=== PATIENT | female | born 1995 | race Caucasian/White ===

== ENCOUNTER 2016-09-03 00:34 | Emergency (ER) | payer OTHER ==
[2016-09-03 00:51] VITALS: BP 105/64; PULSE 98; TEMP 97.8; BMI 26.9
[2016-09-03] MEDS ORDERED: diphenhydrAMINE HCL 25 MG CAPSULE (FP) PO ONE ×2 (01:32→01:36)
--- NOTE | 2016-09-03 01:32 | PDOC ---
History of Present Illness - General History Source: Patient <Don Ch - Last Filed: 09/03/16 01:40> - General History Source: Patient Exam Limitations: No Limitations - History of Present Illness Initial Comments: 09/03/16 01:51 The patient is a 21-year-old female, with no significant past medical history, who presents to the emergency department complaining of nasal congestion and fever since yesterday. The patient presents to the ED with her daughter who has similar symptoms since 4 days ago. She reports an associated non-productive cough, but denies chills, headache, and dizziness. She denies chest pain, diaphoresis, palpitations, and shortness of breath. She denies nausea, vomiting , diarrhea, and constipation. The patient denies any recent travel. Allergies: None reported. Past Surgical History: None reported. Social History: Non-smoker. Denies alcohol or drug use. PCP: Dr. Gus Manjarrez <Chelsie Burnette - Last Filed: 09/03/16 01:56> - General Chief Complaint: Cold Symptoms Stated Complaint: COUGH,CONGESTION Time Seen by Provider: 09/03/16 01:32 Past History - Psycho/Social/Smoking Cessation Hx Suicidal Ideation: No Smoking History: Never smoked Have you smoked in the past 12 months: No Information on smoking cessation initiated: No Hx Alcohol Use: No Drug/Substance Use Hx: No <Don Ch - Last Filed: 09/03/16 01:40> <Chelsie Burnette - Last Filed: 09/03/16 01:56> - Past Medical History Allergies/Adverse Reactions: Allergies Allergy/AdvReac Type Severity Reaction Status Date / Time No Known Allergies Allergy Verified 09/03/16 00:49 Home Medications: Ambulatory Orders Diphenhydramine HCl [Benadryl Capsules -] 25 mg PO TID #30 capsule 09/03/16 Review of Systems - Review of Systems Able to Perform ROS?: Yes Comments:: 09/03/16 01:51 CONSTITUTIONAL: Present: +fever Absent: no chills, no fatigue EYES: Absent: visual changes ENT: Present: +nasal congestion Absent: ear pain, no sore throat CARDIOVASCULAR: Absent: chest pain, no palpitations RESPIRATORY: Present: + cough Absent: no SOB GI: Absent: abdominal pain, no nausea, no vomiting, no constipation, no diarrhea GENITOURINARY: Absent: dysuria, no frequency, no hematuria MUSKULOSKELETAL: Absent: back pain, no arthralgia, no myalgia SKIN: Absent: rash NEURO: Absent: headache <BurnetteDeandraaliyajordanchristina - Last Filed: 09/03/16 01:56> *Physical Exam - Vital Signs Last Vital Signs Temp Pulse Resp BP Pulse Ox 97.8 F 98 H 22 105/64 99 09/03/16 00:50 09/03/16 00:50 09/03/16 00:50 09/03/16 00:50 09/03/16 00:50 <Don Ch - Last Filed: 09/03/16 01:40> - Vital Signs Last Vital Signs Temp Pulse Resp BP Pulse Ox 97.8 F 98 H 22 105/64 99 09/03/16 00:50 09/03/16 00:50 09/03/16 00:50 09/03/16 00:50 09/03/16 00:50 - Physical Exam Comments: 09/03/16 01:52 GENERAL: Well-appearing, well-nourished. No apparent distress. HEENT: Normocephalic, atraumatic. PERRL, EOM intact. CARDIOVASCULAR: Normal S1, S2. Regular rate and rhythm. PULMONARY: Clear to auscultation bilaterally. ABDOMEN: Soft, non-distended, non-tender. EXTREMITIES: Normal ROM in all four extremities. No gross deformities. SKIN: Warm, dry. No rash NEUROLOGICAL: No focal neurological deficits. <Chelsie Burnette - Last Filed: 09/03/16 01:56> ED Treatment Course - Medications Given in the ED: ED Medications Discontinued Medications Generic Name Dose Route Start Last Admin Trade Name Freq PRN Reason Stop Dose Admin Diphenhydramine HCl 25 mg 09/03/16 01:32 09/03/16 01:36 Benadryl - PO 09/03/16 01:33 25 mg ONCE ONE Administration <VasileDeandramanuelito - Last Filed: 09/03/16 01:56> Medical Decision Making - Medical Decision Making 09/03/16 01:34 Dr. Ch: The scribe's documentation has been prepared under my direction and personally reviewed by me in its entirery. I confirm that the note above accurately reflects all work, treatment, procedures, and medical decision making performed by me. <Don Ch - Last Filed: 09/03/16 01:40> *DC/Admit/Observation/Transfer - Discharge Dispostion Admit: No <Don Ch - Last Filed: 09/03/16 01:40> - Attestations Scribe Attestion: 09/03/16 01:53 Documentation prepared by Chelsie Burnette, acting as administrative medical director for Don Ch DO. <Chelsie Burnette - Last Filed: 09/03/16 01:56> Diagnosis at time of Disposition: Cough, Viral upper respiratory illness - Discharge Dispostion Disposition: HOME Condition at time of disposition: Stable - Prescriptions Prescriptions: Diphenhydramine HCl [Benadryl Capsules -] 25 mg PO TID #30 capsule - Referrals Referrals: Gus Manjarrez MD [Primary Care Provider] - - Patient Instructions Printed Discharge Instructions: DI for Common Cold, DI for Cough -- Adult
== END 2016-09-03 01:40 | disposition home or self-care (01) ==
LOC: JER 00:34
DX: J06.9 Acute upper respiratory infection, unspecified (principal); R05 Cough
CPT/HCPCS: 99281-25

== ENCOUNTER 2017-08-24 18:35 | Emergency (ER) | payer OTHER ==
[2017-08-24 18:50] VITALS: BP 120/70; PULSE 87; TEMP 98.2; BMI 28.3
--- NOTE | 2017-08-24 18:53 | PDOC ---
Rapid Medical Evaluation Time Seen by Provider: 08/24/17 18:47 Medical Evaluation: Allergies Allergy/AdvReac Type Severity Reaction Status Date / Time No Known Allergies Allergy Verified 09/03/16 00:49 I have performed a brief in-person evaluation of this patient. The patient presents with a chief complaint of: abdominal pain and nausea x 2 days Pertinent physical exam findings: Reproducible pain with palpation of umbilicus and RLQ. Abdominal pain reproduced with jumping up and down I have ordered the following: hcg, UA/culture, labs The patient will proceed to the ED for further evaluation. Discharge Disposition - Diagnosis Abdominal pain Qualifiers: Abdominal location: periumbilical Qualified Code(s): R10.33 - Periumbilical pain - Discharge Dispostion Disposition: LEFT BEFORE [facility] Condition at time of disposition: Stable - Referrals Referrals: Bigg Sweet MD [Primary Care Provider] - - Patient Instructions - Post Discharge Activity
[2017-08-24 20:21] LABS: HCG,QUALITATIVE URINE NEGATIVE
[2017-08-24 20:23] LABS: BASO % 0.4 % (0-2.0); EOS % 0.6 % (0-4.5); HEMATOCRIT 43.5 % (32.4-45.2); LYMPH % 28.4 % (8-40); MCH 24.3 pg (25.7-33.7); MCHC 32.1 g/dl (32.0-36.0); MEAN CELL VOLUME 75.7 fl (80-96); MEAN PLT VOLUME 9.4 fl (7.5-11.1); MONO % 9.2 % (3.8-10.2); NEUT % 61.4 % (42.8-82.8); PLATELET COUNT 268 K/MM3 (134-434); RBC 5.75 M/mm3 (3.60-5.2); RDW 14.1 % (11.6-15.6); WHITE BLOOD COUNT 9.4 K/mm3 (4.0-10.0)
[2017-08-24 20:24] LABS: URINE APPEARANCE SLCLOUDY; URINE BILIRUBIN NEGATIVE (NEGATIVE); URINE BLOOD 1+ (NEGATIVE); URINE COLOR STRAW; URINE GLUCOSE (UA) NEGATIVE (NEGATIVE); URINE KETONE NEGATIVE (NEGATIVE); URINE LEUK ESTERASE TRACE (NEGATIVE); URINE NITRITE NEGATIVE (NEGATIVE); URINE PROTEIN NEGATIVE (NEGATIVE); URINE UROBILINOGEN NEGATIVE mg/dL (0.2-1.0)
[2017-08-24 21:21] LABS: ALBUMIN 4.5 g/dl (3.4-5.0); ANION GAP 10 (8-16); BLOOD UREA NITROGEN 7 mg/dL (7-18); CHLORIDE 104 mmol/L (98-107); CO2 25 mmol/L (21-32); CREATININE 0.5 mg/dL (0.55-1.02); GLUCOSE,RANDOM 86 mg/dL (74-106); POTASSIUM 3.7 mmol/L (3.5-5.1); SGOT/AST 41 U/L (15-37); SGPT/ALT 73 U/L (12-78); SODIUM 139 mmol/L (136-145)
[2017-08-24 21:23] LABS: ALK PHOS 100 U/L (45-117); BILIRUBIN,TOTAL 0.8 mg/dL (0.2-1.0); TOT PROT 8.5 g/dl (6.4-8.2)
== END 2017-08-24 22:22 | disposition left against medical advice (07) ==
LOC: JER 18:35
DX: Z53.21 Procedure and treatment not carried out due to patient leaving prior to being seen by health care provider (principal)
CPT/HCPCS: 36415; 80053; 81003; 81015; 84703; 85025; 87086; 99281-25

== ENCOUNTER 2019-06-11 22:59 | Emergency (ER) | payer OTHER ==
[2019-06-11 23:05] VITALS: BMI 30.2
--- NOTE | 2019-06-12 01:03 | PDOC ---
History of Present Illness - General Chief Complaint: Cold Symptoms Stated Complaint: FEVER/HEADACHE Time Seen by Provider: 06/12/19 01:02 Past History - Past Medical History Allergies/Adverse Reactions: Allergies Allergy/AdvReac Type Severity Reaction Status Date / Time No Known Allergies Allergy Verified 06/11/19 23:03 Home Medications: Ambulatory Orders Diphenhydramine HCl [Benadryl Capsules -] 25 mg PO TID #30 capsule 09/03/16 COPD: No - Psycho Social/Smoking Cessation Hx Smoking History: Never smoked Have you smoked in the past 12 months: No Hx Alcohol Use: No Drug/Substance Use Hx: No Substance Use Type: None *Physical Exam - Vital Signs Last Vital Signs Temp Pulse Resp BP Pulse Ox 100.6 F H 118 H 20 113/68 98 06/11/19 23:03 06/11/19 23:03 06/11/19 23:03 06/11/19 23:03 06/11/19 23:03 Discharge - Follow up/Referral Referrals: Bigg Sweet MD [Primary Care Provider] - - Patient Discharge Instructions - Post Discharge Activity
--- NOTE | 2019-06-12 01:05 | PDOC ---
History of Present Illness - General Chief Complaint: Cold Symptoms Stated Complaint: FEVER/HEADACHE Time Seen by Provider: 06/12/19 01:02 - History of Present Illness Initial Comments: 06/12/19 01:03 Ms. Romo is a at 32 weeks 23 yo woman w/ no pmh who presents for evaluation of 1 day history of cough, sore throat, and body aches. Patient presents as she felt she had a fever at around 9pm this evening. Patient reports taking 500mg of tylenol earlier in the day. Patient has received full pre- care under Jennie Mike. Denies any vaginal or abdominal symptoms. The patient denies chest pain, shortness of breath, headache and dizziness. Denies chills, nausea, vomit, diarrhea and constipation. Denies dysuria, frequency, urgency and hematuria. Past History - Past Medical History Allergies/Adverse Reactions: Allergies Allergy/AdvReac Type Severity Reaction Status Date / Time No Known Allergies Allergy Verified 06/11/19 23:03 Home Medications: Ambulatory Orders Nitrofurantoin Monohyd/M-Cryst [Macrobid -] 100 mg PO BID #10 capsule 06/12/19 COPD: No - Psycho Social/Smoking Cessation Hx Smoking History: Never smoked Have you smoked in the past 12 months: No Hx Alcohol Use: No Drug/Substance Use Hx: No Substance Use Type: None Review of Systems - Review of Systems Comments:: 06/12/19 01:04 GENERAL/CONSTITUTIONAL: +Fever as reported. No chills. No weakness. HEAD, EYES, EARS, NOSE AND THROAT: +1 day of sore throat. No change in vision. No ear pain or discharge. CARDIOVASCULAR: No chest pain or shortness of breath RESPIRATORY: +Mild cough w/out wheezing, or hemoptysis. GASTROINTESTINAL: No nausea, vomiting, diarrhea or constipation. GENITOURINARY: No dysuria, frequency, or change in urination. MUSCULOSKELETAL: +Non-specific body aches x1 day. SKIN: No rash NEUROLOGIC: No headache, vertigo, loss of consciousness, or change in strength/ sensation. ENDOCRINE: No increased thirst. No abnormal weight change HEMATOLOGIC/LYMPHATIC: No anemia, easy bleeding, or history of blood clots. ALLERGIC/IMMUNOLOGIC: No hives or skin allergy. *Physical Exam - Vital Signs Last Vital Signs Temp Pulse Resp BP Pulse Ox 100.6 F H 118 H 20 113/68 98 06/11/19 23:03 06/11/19 23:03 06/11/19 23:03 06/11/19 23:03 06/11/19 23:03 - Physical Exam Comments: 06/12/19 01:04 GENERAL: Awake, alert, and fully oriented, in no acute distress HEAD: No signs of trauma, normocephalic, atraumatic EYES: PERRLA, EOMI, sclera anicteric, conjunctiva clear ENT: +oropharynx mildly inflamed w/out exudates. Auricles normal inspection, hearing grossly normal, nares patent. Moist mucosa NECK: Normal ROM, supple, no lymphadenopathy, JVD, or masses LUNGS: No distress, speaks full sentences, clear to auscultation bilaterally HEART: Regular rate and rhythm, normal S1 and S2, no murmurs, rubs or gallops, peripheral pulses normal and equal bilaterally. ABDOMEN: Soft, nontender, normoactive bowel sounds. No guarding, no rebound. No masses EXTREMITIES: Normal inspection, Normal range of motion, no edema. No clubbing or cyanosis. NEUROLOGICAL: Cranial nerves II through XII grossly intact. Normal speech, normal gait, no focal sensorimotor deficits SKIN: Warm, Dry, normal turgor, no rashes or lesions noted. Medical Decision Making - Medical Decision Making 06/12/19 02:47 Ms. Romo is a 23 yo female w/ pmh as described who presents for evaluation of symptoms c/w viral illness in setting of . Patient exam negative, vitals noted to include temperature to 100.6. Patient took tylenol prior to arrival. Patient exam negative for acute process. Negative strep and flu. Patient noted to have UTI as below and started on macrobid in ED w/ Rx sent to patient's pharmacy. Discharging patient for L&D evaluation and further outpatient f/u as needed. Discharge - Discharge Information Problems reviewed: Yes Clinical Impression/Diagnosis: UTI (urinary tract infection) Qualifiers: Urinary tract infection type: site unspecified Hematuria presence: without hematuria Qualified Code(s): N39.0 - Urinary tract infection, site not specified Disposition: HOME - Additional Discharge Information Prescriptions: Nitrofurantoin Monohyd/M-Cryst [Macrobid -] 100 mg PO BID #10 capsule - Follow up/Referral Referrals: Bigg Sweet MD [Primary Care Provider] - - Patient Discharge Instructions Patient Printed Discharge Instructions: DI for Urinary Tract Infection (UTI) Additional Instructions: You were evaluated today in the ER for your symptoms. We found that you have a UTI. We started you on antibiotics and sent a prescription to your pharmacy for further treatment. Take all medication as proscribed.Please follow-up with primary care provider or SUPPLY ANALYST for further evaluation later this week. Return to ER if any further pain, fever, chills, or other concerning symptoms. - Post Discharge Activity
--- NOTE | 2019-06-12 01:16 | PDOC ---
Attending Attestation - Resident Resident Name: Trino Leon - ED Attending Attestation I have performed the following: I have examined & evaluated the patient, The case was reviewed & discussed with the resident, I agree w/resident's findings & plan - HPI HPI: 06/12/19 03:09 see resident hpi - Physicial Exam PE: 06/12/19 03:09 agree with resident exam - Medical Decision Making 06/12/19 03:09 23-year-old gravid female, 32 weeks gestational age with sore throat and low- grade fevers Flu and rapid strep are negative Patient does have a urinary tract infection Plan for DC with Macrobid and supportive care Patient transferred to labor and delivery for evaluation
[2019-06-12 02:15] LABS: EPI CELLS 13.9 /HPF (0-5/HPF); HYALINE CASTS 0 /lpf (0-8); URINE APPEARANCE CLOUDY; URINE BACTERIA 206.5 /hpf (NEGATIVE); URINE BILIRUBIN NEGATIVE (NEGATIVE); URINE COLOR YELLOW; URINE GLUCOSE (UA) NEGATIVE (NEGATIVE); URINE KETONE 1+ (NEGATIVE); URINE LEUK ESTERASE 2+ (NEGATIVE); URINE NITRITE NEGATIVE (NEGATIVE); URINE PROTEIN NEGATIVE (NEGATIVE); URINE RBC 0 /hpf (0-4); URINE UROBILINOGEN 0.2 mg/dL (0.2-1.0); URINE WBC 9 /hpf (0-5)
[2019-06-12] MEDS ORDERED: NITROFURANTOIN MACROCRYSTAL 50 MG CAPSULE (FP) PO SCH (02:30)
[2019-06-12] MEDS ORDERED: NITROFURANTOIN MACROCRYSTAL 50 MG CAPSULE (FP) ONE (02:41)
[2019-06-12 03:00] VITALS: BP 120/78; PULSE 98; TEMP 99
== END 2019-06-12 04:30 | disposition home or self-care (01) ==
LOC: JER 22:59
DX: O26.893 Other specified pregnancy related conditions, third trimester (principal); O23.43 Unspecified infection of urinary tract in pregnancy, third trimester; Z3A.32 32 weeks gestation of pregnancy
CPT/HCPCS: 81003; 87070; 87086; 87804; 87880; 99283-25

== ENCOUNTER 2019-06-15 03:13 | Emergency (ER) | payer OTHER ==
--- NOTE | 2019-06-15 03:38 | PDOC ---
History of Present Illness - General Stated Complaint: LEFT EAR,THROAT PAIN Time Seen by Provider: 06/15/19 03:35 - History of Present Illness Initial Comments: 06/15/19 04:32 23y/o F recently discharged from the ER with sore throat and UTI ( on macrobid) presents to the ER with 2 days of ear pain. She was seen in the ER 06/12/2019 for sore throat and UTI and sent home on macrobid. Her ear pain began yesterday in her right ear and is now in her left only. She denies any purulent drainage from the ear, hearing loss, or trauma to ear. She endorses, runny nose worsening sore throat and subjective fever yesterday for which she took tylenol. Rapid strep and flu done 06/12 was negative. Past History - Past Medical History Allergies/Adverse Reactions: Allergies Allergy/AdvReac Type Severity Reaction Status Date / Time No Known Allergies Allergy Verified 06/15/19 04:02 Home Medications: Ambulatory Orders Nitrofurantoin Monohyd/M-Cryst [Macrobid -] 100 mg PO BID #10 capsule 06/12/19 Amox-Tr/K Cl [Augmentin - 875Mg Tablet] 1 tab PO BID 7 Days #14 tablet 06/15/19 COPD: No - Psycho Social/Smoking Cessation Hx Smoking History: Never smoked Have you smoked in the past 12 months: No Hx Alcohol Use: No Drug/Substance Use Hx: No Substance Use Type: None Review of Systems - Review of Systems Constitutional: Yes: Chills. No: Fever HEENTM: No: Eye Pain, Blurred Vision Respiratory: No: Cough, Shortness of Breath Cardiac (ROS): No: Chest Pain, Lightheadedness ABD/GI: No: Abdominal Distended, Constipated : No: Burning, Dysuria Musculoskeletal: Yes: Back Pain. No: Muscle Weakness Integumentary: No: Bruising, Change in Color Neurological: No: Headache, Tingling Endocrine: No: Unexplained Weight Loss *Physical Exam - Physical Exam Comments: 06/15/19 04:26 PE: GENERAL: Awake, alert, and fully oriented, in no acute distress HEAD: No signs of trauma, normocephalic, atraumatic EYES: PERRLA, EOMI, sclera anicteric, conjunctiva clear ENT: Auricles normal inspection,ttp behind left ear. erythema surrounding tympanic membrane. hearing grossly normal, nares patent, oropharynx clear without exudates. Moist mucosa NECK: Normal ROM, supple, lymph nodes tender to palpation, no JVD, or masses LUNGS: No distress, speaks full sentences, clear to auscultation bilaterally HEART: Regular rate and rhythm, normal S1 and S2, no murmurs, rubs or gallops, peripheral pulses normal and equal bilaterally. ABDOMEN: Soft, nontender, normoactive bowel sounds. gravid. No guarding, no rebound. No masses EXTREMITIES : Normal inspection, Normal range of motion, no edema. No clubbing or cyanosis NEUROLOGICAL: Cranial nerves II through XII grossly intact. Normal speech, normal gait, no focal sensorimotor deficits SKIN: Warm, Dry, normal turgor, no rashes or lesions noted Medical Decision Making - Medical Decision Making 06/15/19 04:31 23y/o F recently discharged from the ER with sore throat and UTI ( on macrobid) presents to the ER with 2 days of ear pain. Rapid strep negative 06/15/19 04:43 Receiving one dose of augmentin (875mg ) here discharge with prescription for 7 day course of augmentin. 06/15/19 05:11 06/15/19 05:25 Pt going up to L&D. They have been informed by Celsa Hassan RN Discharge - Discharge Information Problems reviewed: Yes Clinical Impression/Diagnosis: Ear infection Condition: Stable Disposition: HOME - Admission No - Additional Discharge Information Prescriptions: Amox-Tr/K Cl [Augmentin - 875Mg Tablet] 1 tab PO BID 7 Days #14 tablet - Follow up/Referral Referrals: Bigg Sweet MD [Primary Care Provider] - - Patient Discharge Instructions Patient Printed Discharge Instructions: DI for Middle Ear Infection-Adult Additional Instructions: You were seen in the ER for an ear infection. You have been given one dose of antibiotics here, and sent home with a prescription. complete your treatment, even if you begin feeling better You can take tylenol for pain. Remember to follow label instructions for appropriate use Follow up with your general ophthalmologist doctor. Return to the ER if Your ear pain gets worse or does not go away, even after treatment. The outside of your ear is red or swollen. You are vomiting or have diarrhea. You have fluid coming from your ear. You have questions or concerns about your condition or care. - Post Discharge Activity
--- NOTE | 2019-06-15 04:00 | PDOC ---
Attending Attestation - Resident Resident Name: Radha Santiago - ED Attending Attestation I have performed the following: I have examined & evaluated the patient, The case was reviewed & discussed with the resident, I agree w/resident's findings & plan, Exceptions are as noted - HPI HPI: 06/15/19 06:18 23F 32w here with ear pain and sore throat. Was seen several days ago and found to have UTI - Physicial Exam PE: 06/15/19 06:19 Agree with exam as documented by resident - Medical Decision Making 06/15/19 06:19 consider AOM, eval strep pharyngitis f/u rapid strep, ua dispo per clinical course strep negative tx presumed AOM, dc to L and D
[2019-06-15 04:02] VITALS: BP 113/73; PULSE 99; TEMP 98.4; BMI 30.2
[2019-06-15] MEDS ORDERED: AMOX TR/POT CLAV 875MG/125MG TABLETS (FP) PO ONE (05:10)
[2019-06-15] MEDS ORDERED: AMOX TR/POT CLAV 875MG/125MG TABLETS (FP) ONE (05:19)
== END 2019-06-15 07:00 | disposition home or self-care (01) ==
LOC: JER 03:13
DX: O99.89 Other specified diseases and conditions complicating pregnancy, childbirth and the puerperium (principal); H66.92 Otitis media, unspecified, left ear; R07.0 Pain in throat; Z87.440 Personal history of urinary (tract) infections; Z3A.31 31 weeks gestation of pregnancy
CPT/HCPCS: 87070; 87880; 99282-25

== ENCOUNTER 2019-08-18 19:10 | Inpatient (IN) | payer OTHER ==
[2019-08-18] MEDS ORDERED: DINOPROSTONE 10 MG VAGINAL SUPPOSITORY VG ONE ×2 (20:40→22:15)
--- NOTE | 2019-08-18 20:49 | CONSULT ---
Past Medical History, Laborist - Admission Chief Complaint: Postdates. History of Present Illness: , NICOLAS 08.13.2019. GBS unknown, Admitted for induction History Source: Patient Limitations to Obtaining History: No Limitations, Language Barrier - Past Medical History DIRECTOR OF RADIO SERVICES: Denies/None Cardio/Vascular: Denies/None Pulmonary: Denies/None Gastrointestinal: Denies/None Hepatobiliary: Denies/None Renal/: Denies/None Reproductive: Denies/None ...: 2 ...Para: 1 ...EDC by Dates: 08/13/19 Heme/Onc: Denies/None Infectious Disease: Denies/None Psych: Denies/None Musculoskeletal: Denies/None Rheumatology: Denies/None, Sarcoidosis Endocrine: Denies/None - Past Surgical History Past Surgical History: Yes: None - Smoking History Smoking history: Never smoked Have you smoked in the past 12 months: No - Alcohol/Substance Use Hx Alcohol Use: No Review of Systems - Review of Systems Constitutional: reports: No Symptoms Eyes: reports: No Symptoms HENT: reports: No Symptoms Neck: reports: No Symptoms Cardiovascular: reports: No Symptoms Respiratory: reports: No Symptoms Gastrointestinal: reports: No Symptoms Genitourinary: reports: No Symptoms Breasts: reports: No Symptoms Reported Musculoskeletal: reports: No Symptoms Integumentary: reports: No Symptoms Neurological: reports: No Symptoms Endocrine: reports: No Symptoms Hematology/Lymphatic: reports: No Symptoms Psychiatric: reports: No Symptoms Physical Exam - Maternity Constitutional: Yes: Well Nourished, No Distress, Calm Eyes: Yes: WNL, Conjunctiva Clear, EOM Intact HENT: Yes: WNL, Atraumatic, Normocephalic Neck: Yes: WNL, Supple, Trachea Midline Cardiovascular: Yes: WNL, Regular Rate and Rhythm Breast(s): Yes: WNL - Abdominal Exam/OB Fundal Height: 38 Number of Fetuses: Single Presentation: Vertex Contractions: No Monitor Mode: External Heart Rate (range): 140 Heart Rate Location: RUQ Category: I Accelerations: Uniform Decelerations: None - Vaginal Exam/OB Vaginal Bleediing: No Speculum Exam: No Dilatation (cm): 0 Effacement (%): 20 Amniotic Membrane Status: Intact Presentation: Vertex/Position Station: -3 - Physical Exam Musculoskeletal: Yes: WNL Extremities: Yes: WNL Edema: No Integumentary: Yes: WNL ...Motor Strength: WNL Psychiatric: Yes: WNL Problem List - Problems (1) Post-dates Code(s): O48.0 - POST-TERM Assessment/Plan Second baby. Post dates 40w 5d. Low He score. GBS? Cx closed, long, posterior. Vx -3. Agree with Cervidil induction. CERVIDIL inserted at 20:35 hrs. NST reactive.
[2019-08-18 21:53] VITALS: BMI 32.2
[2019-08-18] MEDS ORDERED: BUTORPHANOL TARTRATE 1 MG/ML VIAL IVPB ONE (22:30)
[2019-08-18] MEDS ORDERED: PROMETHAZINE HCL 25 MG/1 ML VIAL IVPUSH ONE (22:30)
--- NOTE | 2019-08-18 22:34 | HP ---
Past Medical History - Primary Care Physician PCP:: Zee Rutherford - Admission Chief Complaint: induction at 41 weeks History of Present Illness: 24 yo ega 41 weeks admitted for induction of labor History Source: Patient - Past Medical History ...: 2 ...Para: 1 ...Term: 1 ...: 0 ...Spon : 0 ...Induced : 0 ...Multiple Gestation: 0 ...EDC by Dates: 08/13/19 ...EDC by Sono: 08/13/19 - Past Surgical History Past Surgical History: Yes: None Hx Myomectomy: No Hx Transabdominal Cerclage: No - Smoking History Smoking history: Never smoked Have you smoked in the past 12 months: No - Alcohol/Substance Use Hx Alcohol Use: No - Social History Usual Living Arrangement: Yes: With Spouse History of Recent Travel: No Home Medications - Allergies Allergies/Adverse Reactions: Allergies Allergy/AdvReac Type Severity Reaction Status Date / Time No Known Allergies Allergy Verified 06/15/19 04:02 - Home Medications Home Medications: Ambulatory Orders Pnv 29-1 Tablet 1 tab PO DAILY 08/18/19 Review of Systems - Review of Systems Constitutional: reports: No Symptoms Eyes: reports: No Symptoms HENT: reports: No Symptoms Neck: reports: No Symptoms Cardiovascular: reports: No Symptoms Respiratory: reports: No Symptoms Gastrointestinal: reports: No Symptoms Genitourinary: reports: No Symptoms Breasts: reports: No Symptoms Reported Musculoskeletal: reports: No Symptoms Integumentary: reports: No Symptoms Neurological: reports: No Symptoms Endocrine: reports: No Symptoms Hematology/Lymphatic: reports: No Symptoms Psychiatric: reports: No Symptoms Physical Exam - Maternity Vital Signs: Vital Signs Temperature 98.1 F 08/18/19 19:10 Pulse Rate 94 H 08/18/19 19:10 Respiratory Rate 20 08/18/19 19:10 Blood Pressure 134/64 08/18/19 19:10 O2 Sat by Pulse Oximetry (%) - Abdominal Exam/OB Number of Fetuses: Single Presentation: Vertex Category: I Decelerations: None - Vaginal Exam/OB Amniotic Membrane Status: Intact Presentation: Vertex/Position - Physical Exam Psychiatric: Yes: WNL, Alert, Oriented Problem List - Problems (1) 41 weeks gestation of Code(s): Z3A.41 - 41 WEEKS GESTATION OF Assessment/Plan IUP at 40.5 weeks postdates induction Plan cervidil placed by laborist
[2019-08-18 23:02] LABS: BASO % 0.1 % (0-2.0); EOS % 1.5 % (0-4.5); HEMOGLOBIN 13.4 GM/dL (10.7-15.3); LYMPH % 26.2 % (8-40); MCH 25.3 pg (25.7-33.7); MEAN CELL VOLUME 79.3 fl (80-96); MEAN PLT VOLUME 10.4 fl (7.5-11.1); MONO % 13.4 % (3.8-10.2); NEUT % 58.8 % (42.8-82.8); PLATELET COUNT 188 K/MM3 (134-434); RDW 15.9 % (11.6-15.6); WHITE BLOOD COUNT 9.2 K/mm3 (4.0-10.0)
[2019-08-18 23:31] LABS: INR 0.89 (0.83-1.09); PROTHROMBIN TIME (PATIENT) 10.5 SEC (9.7-13.0)
[2019-08-18 23:34] LABS: ACTIVATED PTT 29.2 SECONDS (25.2-36.5); BLOOD UREA NITROGEN 7.3 mg/dL (7-18); CREATININE 0.4 mg/dL (0.55-1.3); POTASSIUM 4.2 mmol/L (3.5-5.1)
[2019-08-19] MEDS ORDERED: OXYTOCIN 30 UNITS in 0.9% NS 30 UNIT/500 ML INFUS.BAG IVPB ONE (10:42)
[2019-08-19] MEDS: ELECTROLYTE-148 SOLN 1,000 ML IV SCH ×2 (10:50→16:50)
--- NOTE | 2019-08-19 11:07 | PN ---
Ante-Partal Exam - Subjective Subjective: Pt doing good pt with contractions Vital Signs: Vital Signs Temperature 98.1 F 08/19/19 06:00 Pulse Rate 87 08/19/19 09:00 Respiratory Rate 20 08/19/19 09:00 Blood Pressure 104/66 08/19/19 09:00 O2 Sat by Pulse Oximetry (%) Bleeding: No Headache: No Visual changes: No Right upper quadrant pain: No - Contractions Contractions: Yes Regularity: Regular Monitor Mode: External - Exam during Labor Variability: Moderate Heart Rate Location: [facility] Category: I Monitor Accelerations: Present Monitor Decelerations: None Exam: Vaginal Dilatation (cm): 3 Amniotic Membrane Status: Intact Presentation: Vertex Station: -3 - Intrapartum Hemorrhage Risk Medium Risk Factors: None High Risk Factors: None Risk Score: 0 Risk Level: Low Risk - Assessment/Plan Assessment/Plan: Cat 1 with contractions IUP at 41 weeks induction P1 Plan will augment with pitocin if contractions space
[2019-08-19] MEDS ORDERED: AMPICILLIN SODIUM 2 GM VIAL ONE (16:45)
[2019-08-19] MEDS ORDERED: AMPICILLIN - 2 GM in SODIUM CHLORIDE 100 ML IVPB ONE (16:45)
[2019-08-19] MEDS ORDERED: AMPICILLIN SODIUM 1 GM VIAL ONE (20:59)
[2019-08-19] MEDS: AMPICILLIN - 1 GM in SODIUM CHLORIDE 100 ML IVPB SCH (21:00)
--- NOTE | 2019-08-19 21:28 | PN ---
Ante-Partal Exam - Subjective Subjective: Pt with contractions no rom or bleeding Vital Signs: Vital Signs Temperature 98.9 F 08/19/19 18:00 Pulse Rate 103 H 08/19/19 20:00 Respiratory Rate 18 08/19/19 20:00 Blood Pressure 115/69 08/19/19 20:00 O2 Sat by Pulse Oximetry (%) Bleeding: No Headache: No Visual changes: No Right upper quadrant pain: No - Contractions Contractions: Yes Monitor Mode: External - Exam during Labor Heart Rate: 145 Variability: Moderate Category: I Monitor Accelerations: Present Monitor Decelerations: None Exam: Vaginal Dilatation (cm): 4 cm Effacement (%): 90 Amniotic Membrane Status: Ruptured Amniotic Fluid: Clear Presentation: Vertex Station: -2 - Intrapartum Hemorrhage Risk Risk Score: 0 Risk Level: Low Risk - Assessment/Plan Assessment/Plan: Cat 1 sp low grade temp and amp started P1 AROM Plan continue present management
[2019-08-19] MEDS ORDERED: ACETAMINOPHEN 1000 MG/100 ML VIAL (NON FORMULARY) IVPB PRN (21:31)
[2019-08-19] MEDS ORDERED: BUTORPHANOL TARTRATE 1 MG/ML VIAL ONE ×2 (21:54)
[2019-08-19] MEDS ORDERED: PROMETHAZINE HCL 25 MG/1 ML VIAL ONE (21:55)
[2019-08-20] MEDS ORDERED: AMPICILLIN SODIUM 1 GM VIAL ONE ×3 (00:52→08:58)
[2019-08-20] MEDS: AMPICILLIN - 1 GM in SODIUM CHLORIDE 100 ML IVPB SCH ×3 (01:00→09:05)
[2019-08-20] MEDS: ELECTROLYTE-148 SOLN 1,000 ML IV SCH ×3 (01:00→22:34)
--- NOTE | 2019-08-20 04:44 | LDN ---
Oxytocin Pre-Use Checklist Date and Time completed: 08/20/19 0443 Physician order on chart: Yes Current history and physical on chart: Yes Indication for induction is documented: Yes record on chart: Yes Pelvis is documented by physician to be clinically adequate: Yes Estimated weight within past week (clinical or sono): Less than 4500 grams in a non-diabetic woman Gestational age is documented: Yes Consent signed: Yes Physician with privileges: is aware of the induction, is readily available, is documented in the medical record Status of the cervix is assessed and documented: Yes Presentation is assessed and documented: Yes Assessment completed and includes: A minimum of 30 minutes of monitoring is required prior to start, At least 2 accelerations (15bpm x 15sec) in 30 minutes are present, Adequate variability
[2019-08-20] MEDS ORDERED: OXYTOCIN 30 UNITS in 0.9% NS 30 UNIT/500 ML INFUS.BAG IVPB SCH (04:45)
[2019-08-20] MEDS ORDERED: FENTANYL/BUPIVACAINE/NS/PF - PCEA - 50 ML DISP.SYRIN EP ONE (07:33)
[2019-08-20] MEDS ORDERED: ePHEDrine SULFATE 50 MG/1 ML AMPULE ONE ×2 (07:34)
[2019-08-20] MEDS ORDERED: BUPIVACAINE HCL/PF 2.5 MG/ML - 30 ML VIAL IJ ONE (07:37)
[2019-08-20] MEDS ORDERED: LIDO 2%/EPI 1:200000 PRESRVFRE (20 ML SDVIAL) ONE (07:37)
--- NOTE | 2019-08-20 08:12 | PN ---
Ante-Partal Exam - Subjective Subjective: Pt comfortable after epidura pt on 4 mu pitocin SP epidural Vital Signs: Vital Signs Temperature 98.0 F 08/20/19 07:00 Pulse Rate 112 H 08/20/19 06:00 Respiratory Rate 20 08/20/19 06:00 Blood Pressure 132/80 08/20/19 06:00 O2 Sat by Pulse Oximetry (%) Bleeding: No Headache: No Visual changes: No Right upper quadrant pain: No - Exam during Labor Category: I Monitor Decelerations: None Exam: Vaginal Dilatation (cm): 9 Effacement (%): 100 Amniotic Membrane Status: Ruptured Amniotic Fluid: Clear Presentation: Vertex Station: 0 - Intrapartum Hemorrhage Risk Risk Score: 0 Risk Level: Low Risk - Assessment/Plan Assessment/Plan: Active labor on 4 mu pitocin Cat 1 Plan Anticipate vaginal delivery
[2019-08-20] MEDS ORDERED: OXYTOCIN 20 UNITS in 0.9% NS 20 UNIT/1,000 ML INFUS.BAG IV ONE (08:58)
--- NOTE | 2019-08-20 09:07 | PN ---
Ante-Partal Exam - Subjective Subjective: Pt resting comfortable with epidural Vital Signs: Vital Signs Temperature 98.0 F 08/20/19 07:00 Pulse Rate 103 H 08/20/19 08:45 Respiratory Rate 17 08/20/19 08:45 Blood Pressure 126/74 08/20/19 08:45 O2 Sat by Pulse Oximetry (%) 100 08/20/19 08:45 - Exam during Labor Variability: Moderate Category: I Monitor Accelerations: Present Monitor Decelerations: None Exam: Vaginal Amniotic Membrane Status: Ruptured Amniotic Fluid: Clear Presentation: Vertex Station: 0 - Intrapartum Hemorrhage Risk Risk Score: 0 Risk Level: Low Risk - Assessment/Plan Assessment/Plan: Active labor Cat 1 Plan will await pt urge to push
[2019-08-20] MEDS ORDERED: WITCH HAZEL 50% (TUCKS) 40 PAD/JAR PAD TP PRN (09:08)
[2019-08-20] MEDS ORDERED: METHYLERGONOVINE MALEATE 0.2 MG/1 ML AMP IM PRN (09:08)
[2019-08-20] MEDS ORDERED: BENZOCAINE 28 GM HEMORRHOIDAL OINTMENT PR PRN (09:08)
[2019-08-20] MEDS ORDERED: BISACODYL 10 MG SUPP.RECT RC PRN (09:08)
[2019-08-20] MEDS ORDERED: OXYTOCIN 20 UNITS in 0.9% NS 20 UNIT/1,000 ML INFUS.BAG IV SCH (09:15)
[2019-08-20] MEDS ORDERED: NALOXONE HCL 0.4 MG/ML VIAL IVPUSH PRN (09:45)
[2019-08-20] MEDS ORDERED: FENTANYL/BUPIVACAINE/NS/PF - PCEA - 50 ML DISP.SYRIN EP SCH (09:45)
[2019-08-20] MEDS ORDERED: LIDOCAINE HCL 1% PRESERVATIVE FREE - 30ML VIAL ONE (09:57)
[2019-08-20] MEDS ORDERED: ACETAMINOPHEN 325 MG TABLET (FP) ONE (12:30)
[2019-08-20] MEDS ORDERED: IBUPROFEN 600 MG TABLET (FP) PO ONE (12:30)
[2019-08-20] MEDS: IBUPROFEN 600 MG TABLET (FP) PO PRN ×2 (12:35→16:47)
[2019-08-20] MEDS: ACETAMINOPHEN 325 MG TABLET (FP) PO PRN ×2 (12:35→16:47)
[2019-08-20] MEDS: BENZOCAINE 20% 57 GM BOTTLE TP PRN ×2 (16:47→20:58)
--- NOTE | 2019-08-21 00:47 | PROC ---
Obstetrical Vaccum Device - Doc. Following Use of Vaccum Device Indications for use: Maternal Exhaustion, Failure to Descend Risks and Benefits Explained: Yes Consent on Chart: Yes Station: 1 Molding: No Position: OT Caput: No Proper placement of cup confirmed: Yes Number of pulls: 2 Number of pop-offs: 1 Reduction of pressure between contractions: Yes Appearance of head on delivery: Normal Investment Executive present during vacuum extraction: Yes Investment Executive & nursery staff notified of vacuum extraction: Yes
--- NOTE | 2019-08-21 00:49 | PN ---
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
[2019-08-21] MEDS: ACETAMINOPHEN 325 MG TABLET (FP) PO PRN ×3 (05:40→21:53)
[2019-08-21] MEDS: IBUPROFEN 600 MG TABLET (FP) PO PRN ×3 (05:40→21:54)
[2019-08-21 08:24] LABS: BASO % 0.2 % (0-2.0); EOS % 1.1 % (0-4.5); HEMATOCRIT 37.4 % (32.4-45.2); LYMPH % 16.4 % (8-40); MCH 25.4 pg (25.7-33.7); MCHC 32.2 g/dl (32.0-36.0); MEAN CELL VOLUME 78.9 fl (80-96); MONO % 10.3 % (3.8-10.2); PLATELET COUNT 177 K/MM3 (134-434); RBC 4.74 M/mm3 (3.60-5.2); RDW 15.4 % (11.6-15.6); WHITE BLOOD COUNT 11.8 K/mm3 (4.0-10.0)
[2019-08-21] MEDS ORDERED: FLU VACC QS2019-20(6MOS UP)/PF 60 MCG/0.5 ML SYRINGE IM ONE (10:00)
[2019-08-21] MEDS ORDERED: FLU VACCINE QUAD 60 MCG/0.5 ML (MDV 19-20) IM ONE (10:00)
[2019-08-21 22:41] VITALS: TEMP 97.6
--- NOTE | 2019-08-21 23:07 | PN ---
Post Note - Post Date of Delivery: 08/20/19 Post Day: 1 Vital Signs: Vital Signs - 24 hr 08/21/19 08/21/19 08/21/19 02:00 05:46 10:00 Temperature 98.5 F 98.1 F 98.5 F Pulse Rate 65 82 92 H Respiratory 20 20 20 Rate Blood Pressure 98/48 L 112/68 110/84 08/21/19 22:00 Temperature 97.6 F Pulse Rate 90 Respiratory 20 Rate Blood Pressure 112/63 Labs: Laboratory Results - last 24 hr 08/21/19 07:36 WBC 11.8 H RBC 4.74 Hgb 12.0 Hct 37.4 MCV 78.9 L MCH 25.4 L MCHC 32.2 RDW 15.4 Plt Count 177 MPV 10.0 Absolute Neuts (auto) 8.5 H Neutrophils % 72.0 D Lymphocytes % 16.4 D Monocytes % 10.3 H Eosinophils % 1.1 Basophils % 0.2 Nucleated RBC % 0 - Subjective Subjective: No Complaints - Objective Afebrile: Yes Breast: Not engorged Abdomen: Soft, Non-tender Uterus: Fundus firm Vagina: Scant lochia Extremities: Non-tender - Assessment/Plan (1) 41 weeks gestation of Assessment: S/P Normal Plan: Routine Care
[2019-08-22] MEDS: IBUPROFEN 600 MG TABLET (FP) PO PRN (08:27)
[2019-08-22] MEDS: ACETAMINOPHEN 325 MG TABLET (FP) PO PRN (08:28)
[2019-08-22 09:01] VITALS: BP 116/72; PULSE 80
--- NOTE | 2019-08-29 08:46 | DS ---
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 Vital Signs: Vital Signs Temperature 97.6 F 08/22/19 09:00 Pulse Rate 80 08/22/19 09:00 Respiratory Rate 18 08/22/19 09:00 Blood Pressure 116/72 08/22/19 09:00 O2 Sat by Pulse Oximetry (%) 100 08/20/19 10:30 Constitutional: Yes: Well Nourished, No Distress Cardiovascular: Yes: WNL Respiratory: Yes: WNL Gastrointestinal: Yes: WNL, Soft ....Post : Yes: Uterus firm, Uterus non-tender Breast(s): Yes: WNL Musculoskeletal: Yes: WNL Extremities: Yes: WNL Edema: No Integumentary: Yes: WNL Labs: CBC, BMP 08/21/19 07:36 08/18/19 22:30 Delivery - Delivery Vaginal Delivery: No Problems, Vacuum Assist Type of Anesthesia: Epidural Episiotomy/Laceration: 1st degree EBL (cc): 300 Delivery, Single - Stages of Labor Date 1st Stage Initiatied: 08/20/19 Time 1st Stage Initiated: 04:00 Date 2nd Stage Initiated: 08/20/19 Time 2nd Stage Initiated: 10:00 Date of Delivery: 08/20/19 Time of Delivery: 10:58 Time Placenta Delivered: 11:00 Placenta: Yes: Spontaneous - Condition of Hatchery Helper/Drafting Engineer Present: Yes Name: Nereida Christianson Gender: Male Weight: 7 lb 8 oz Total Hours ROM (Hrs/Mins): clear - 1 Minute Total Score: 7 5 Minutes Total Score: 8 - [place] Feeding Plan Initial Plan: Elected not to breastfeed exclusively throughout hospitalization Discharge Summary Problems reviewed: Yes Reason For Visit: LABOR Procedures: Principal: vacuum delivery Condition: Good - Instructions Diet, Activity, Other Instructions: Physical activity Resume your normal everyday activity as tolerated no heavy lifting or exercise until seen by your surgeon. You may walk unlimited vannessa of and climb stairs. You may resume driving the car when you feel safe and comfortable behind the wheel. No sexual activity as instructed. Wound care If you have a bandage, leave it on, and keep dry for 48-72 hours. After that time discard the outer bandage. If they are tapes on the skin under the out of bandage leave them in place. They will peel off in the next 7 to 10 days. Do Not Peel them off. You may shower the day after surgery. If there are tapes present on the skin, you may shower over them. Diet There are no dietary restrictions. Eat healthy, high-fiber foods. Drink 6 to 8 glasses of liquid each day. This will assist in keeping your bowels are regular. Pain management You may take Tylenol or acetaminophen or Ibuprofen (for example, Motrin, Advil etc.) from my pain prescription medication is ordered should be taken as prescribed for moderate to severe pain. Call MD for any of the following: Severe pain not relieved by medication Fever of 101 or higher Excessive bleeding or drainage on dressing Inability to urinate Referrals: Zee Rutherford MD [Staff Physician] - Disposition: HOME - Home Medications Comprehensive Discharge Medication List: Ambulatory Orders Pnv 29-1 Tablet 1 tab PO DAILY 08/18/19 Ibuprofen [Motrin -] 600 mg PO TID #21 tablet 08/21/19
== END 2019-08-22 13:55 | disposition home or self-care (01) | DRG 560 ==
LOC: JLDR 19:10 → J3W 08-20 13:15
PROVIDERS: ADMIT Obstetrics & Gynecology; ATTEND Obstetrics & Gynecology
PROC: 10D07Z6 Extraction of Products of Conception, Vacuum, Via Natural or Artificial Opening (ICD-10-PCS; principal; 2019-08-20)
PROC: 0HQ9XZZ Repair Perineum Skin, External Approach (ICD-10-PCS; 2019-08-20)
DX: O48.0 Post-term pregnancy (principal); O75.81 Maternal exhaustion complicating labor and delivery; O32.4XX0 Maternal care for high head at term, not applicable or unspecified; O70.0 First degree perineal laceration during delivery; Z3A.41 41 weeks gestation of pregnancy; Z37.0 Single live birth
CPT/HCPCS: 36415; 36600; 59409; 80048; 82803; 85025; 85610; 85730; 86593; 86850; 86900; 86901; 87389; 90686; G0008; J0131

== ENCOUNTER 2020-08-07 16:33 | Emergency (ER) | payer OTHER ==
[2020-08-07 17:19] VITALS: BP 115/78; PULSE 115; TEMP 98.4; BMI 30.2
[2020-08-07] MEDS ORDERED: ACETAMINOPHEN 500 MG TABLET (FP) PO ONE (17:47)
[2020-08-07] MEDS ORDERED: ACETAMINOPHEN 325 MG TABLET (FP) ONE (17:52)
== END 2020-08-07 19:10 | disposition home or self-care (01) ==
LOC: JER 16:33
DX: U07.1 COVID-19 (principal)
CPT/HCPCS: 71046-TC-FY; 99284-25; C9803; U0003

== ENCOUNTER 2020-12-22 15:54 | Emergency (ER) | payer OTHER ==
[2020-12-22 16:30] VITALS: BP 137/91; TEMP 98.2; BMI 30.2
[2020-12-22 18:37] VITALS: PULSE 112
== END 2020-12-22 18:39 | disposition home or self-care (01) ==
LOC: JER 15:54
DX: R00.2 Palpitations (principal); T43.615A Adverse effect of caffeine, initial encounter
CPT/HCPCS: 71046-TC-FY; 93005; 93010; 99284-25

== ENCOUNTER 2021-02-10 15:47 | Emergency (ER) | payer OTHER ==
[2021-02-10 15:53] VITALS: TEMP 98.3; BMI 30.2
[2021-02-10] MEDS ORDERED: SODIUM CHLORIDE 1,000 ML IV STA (16:20)
[2021-02-10 17:15] LABS: BASO % 0.1 % (0-2.0); HEMATOCRIT 44.4 % (32.4-45.2); HEMOGLOBIN 14.3 GM/dL (10.7-15.3); LYMPH % 17.3 % (8-40); MCH 24.3 pg (25.7-33.7); MCHC 32.3 g/dl (32.0-36.0); MEAN CELL VOLUME 75.1 fl (80-96); MEAN PLT VOLUME 9.2 fl (7.5-11.1); NEUT % 76.6 % (42.8-82.8); PLATELET COUNT 254 10^3/uL (134-434); RBC 5.91 M/mm3 (3.60-5.2); RDW 14.2 % (11.6-15.6); WHITE BLOOD COUNT 10.8 K/mm3 (4.0-10.0)
[2021-02-10 17:35] LABS: CHLORIDE 103 mmol/L (98-107); INR 1.03 (0.83-1.09); PROTHROMBIN TIME (PATIENT) 12.5 SEC (9.7-13.0); SODIUM 138 mmol/L (136-145)
[2021-02-10 17:39] LABS: ALBUMIN 4.6 g/dl (3.4-5.0); ANION GAP 10 MMOL/L (8-16); BLOOD UREA NITROGEN 5.2 mg/dL (7-18); CALCIUM 9.8 mg/dL (8.5-10.1); CO2 25 mmol/L (21-32); GLUCOSE,RANDOM 102 mg/dL (74-106); MAGNESIUM 1.9 mg/dL (1.8-2.4)
[2021-02-10 17:42] LABS: SGOT/AST 21 U/L (15-37); SGPT/ALT 38 U/L (13-61)
[2021-02-10 17:43] LABS: CREATININE 0.6 mg/dL (0.55-1.3)
[2021-02-10 17:44] LABS: TOT PROT 8.4 g/dl (6.4-8.2)
[2021-02-10 17:45] LABS: ALK PHOS 87 U/L (45-117); BILIRUBIN,TOTAL 0.8 mg/dL (0.2-1)
[2021-02-10 17:51] LABS: HCG,QUALITATIVE URINE Negative
[2021-02-10 17:53] LABS: EPI CELLS >36 /uL (0-25.1); HYALINE CASTS 3 /uL (0-3.1); URINE APPEARANCE CLOUDY; URINE BACTERIA 1414 /uL (0-1359); URINE BILIRUBIN NEGATIVE (NEGATIVE); URINE COLOR YELLOW; URINE GLUCOSE (UA) NEGATIVE (NEGATIVE); URINE KETONE TRACE (NEGATIVE); URINE LEUK ESTERASE 2+ (NEGATIVE); URINE NITRITE NEGATIVE (NEGATIVE); URINE PROTEIN TRACE (NEGATIVE); URINE RBC 16 /uL (0-23.9); URINE UROBILINOGEN 0.2 mg/dL (0.2-1.0); URINE WBC 81 /uL (0-25.8)
[2021-02-10 19:26] VITALS: BP 126/78; PULSE 96
== END 2021-02-10 19:27 | disposition home or self-care (01) ==
LOC: JER 15:47
PROC: 3E0337Z Introduction of Electrolytic and Water Balance Substance into Peripheral Vein, Percutaneous Approach (ICD-10-PCS; principal; 2021-02-10)
DX: N30.00 Acute cystitis without hematuria (principal)
CPT/HCPCS: 36415; 71046-TC-FY; 80053; 81003; 82550; 83735; 84443; 84484; 84703; 85025; 85379; 85610; 93005; 93010; 99285-25

== ENCOUNTER 2021-03-11 14:48 | Emergency (ER) | payer OTHER ==
[2021-03-11 14:56] VITALS: BP 143/89; TEMP 98; BMI 29.2
[2021-03-11] MEDS ORDERED: LACTATED RINGERS SOLUTION 1000 ML INFUS.BAG IV ONE (16:16)
[2021-03-11 16:45] LABS: BASO % 0.1 % (0-2.0); EOS % 0.3 % (0-4.5); HEMATOCRIT 41.2 % (32.4-45.2); HEMOGLOBIN 13.1 GM/dL (10.7-15.3); LYMPH % 15.1 % (8-40); MCH 24.2 pg (25.7-33.7); MCHC 31.9 g/dl (32.0-36.0); MEAN CELL VOLUME 75.8 fl (80-96); MEAN PLT VOLUME 9.6 fl (7.5-11.1); MONO % 10.2 % (3.8-10.2); NEUT % 74.3 % (42.8-82.8); PLATELET COUNT 238 10^3/uL (134-434); RBC 5.43 M/mm3 (3.60-5.2); RDW 14.6 % (11.6-15.6)
[2021-03-11 16:59] LABS: CALCIUM 9.1 mg/dL (8.5-10.1)
[2021-03-11 17:03] LABS: CREATININE 0.6 mg/dL (0.55-1.3)
[2021-03-11 17:21] LABS: EPI CELLS 27 /uL (0-25.1); HYALINE CASTS 0 /uL (0-3.1); URINE APPEARANCE CLEAR; URINE BACTERIA 739 /uL (0-1359); URINE BILIRUBIN NEGATIVE (NEGATIVE); URINE COLOR YELLOW; URINE GLUCOSE (UA) NEGATIVE (NEGATIVE); URINE KETONE NEGATIVE (NEGATIVE); URINE LEUK ESTERASE 2+ (NEGATIVE); URINE NITRITE NEGATIVE (NEGATIVE); URINE PROTEIN NEGATIVE (NEGATIVE); URINE RBC 11 /uL (0-23.9); URINE UROBILINOGEN 0.2 mg/dL (0.2-1.0); URINE WBC 32 /uL (0-25.8)
[2021-03-11 18:01] VITALS: PULSE 103
== END 2021-03-11 18:05 | disposition home or self-care (01) ==
LOC: JER 14:48
DX: R00.2 Palpitations (principal)
CPT/HCPCS: 36415; 80048; 81003; 84703; 85025; 85379; 87086; 93005; 93010; 99284-25

== ENCOUNTER 2022-04-08 13:35 | Inpatient (IN) | payer OTHER ==
[2022-04-08] MEDS ORDERED: OXYTOCIN 30 UNITS in 0.9% NS 30 UNIT/500 ML INFUS.BAG IVPB SCH (14:45)
[2022-04-08] MEDS ORDERED: ELECTROLYTE-148 SOLN 1,000 ML IV SCH (14:45)
[2022-04-08 15:24] LABS: BASO % 0.3 % (0-2.0); EOS % 1.3 % (0-4.5); HEMATOCRIT 39.3 % (32.4-45.2); LYMPH % 31.9 % (8-40); MCH 25.4 pg (25.7-33.7); MCHC 33.1 g/dl (32.0-36.0); MEAN CELL VOLUME 76.9 fl (80-96); MEAN PLT VOLUME 10.2 fl (7.5-11.1); MONO % 10.7 % (3.8-10.2); NEUT % 55.8 % (42.8-82.8); PLATELET COUNT 145 10^3/uL (134-434); RBC 5.11 M/mm3 (3.60-5.2); RDW 15.1 % (11.6-15.6); WHITE BLOOD COUNT 7.5 K/mm3 (4.0-10.0)
[2022-04-08 15:31] LABS: INR 0.92 (0.83-1.09); PROTHROMBIN TIME (PATIENT) 10.6 SEC (9.7-13.0)
[2022-04-08 15:34] LABS: ACTIVATED PTT 27.1 SECONDS (25.2-36.5)
[2022-04-08 16:08] LABS: CALCIUM 8.8 mg/dL (8.5-10.1)
[2022-04-08 16:09] LABS: BLOOD UREA NITROGEN 8.6 mg/dL (7-18)
[2022-04-08 16:12] LABS: CREATININE 0.5 mg/dL (0.55-1.3)
[2022-04-08 17:31] VITALS: BMI 35.2
[2022-04-08] MEDS ORDERED: FENTANYL/BUPIVACAINE/NS/PF - PCEA - 50 ML DISP.SYRIN EP ONE (19:13)
[2022-04-08] MEDS ORDERED: NALOXONE HCL 0.4 MG/ML VIAL IVPUSH PRN (19:32)
[2022-04-08] MEDS ORDERED: BUPIVACAINE HCL/PF 0.25% (2.5MG/ML) 10 ML VIAL ONE (19:34)
[2022-04-08] MEDS: FENTANYL/BUPIVACAINE/NS/PF - PCEA - 50 ML DISP.SYRIN EP SCH (19:50)
[2022-04-08] MEDS ORDERED: OXYTOCIN 20 UNITS in 0.9% NS 20 UNIT/1,000 ML INFUS.BAG IV ONE (20:34)
[2022-04-08] MEDS ORDERED: oxyCODONE HCL 5 MG TABLET PO PRN (21:17)
[2022-04-08] MEDS ORDERED: WITCH HAZEL 50% (TUCKS) 40 PAD/JAR PAD TP PRN (21:17)
[2022-04-08] MEDS ORDERED: ACETAMINOPHEN 325 MG TABLET (FP) PO PRN (21:17)
[2022-04-08] MEDS ORDERED: BENZOCAINE 20% 57 GM BOTTLE TP PRN (21:17)
[2022-04-08] MEDS ORDERED: BISACODYL 10 MG SUPP.RECT RC PRN (21:17)
[2022-04-08] MEDS ORDERED: BENZOCAINE 28 GM HEMORRHOIDAL OINTMENT TP PRN (21:17)
[2022-04-08] MEDS ORDERED: METHYLERGONOVINE MALEATE 0.2 MG/1 ML AMP IM PRN (21:17)
[2022-04-08 21:23] LABS: HIV INTERPRETATION NEGATIVE (NEGATIVE)
[2022-04-08] MEDS ORDERED: OXYTOCIN 20 UNITS in 0.9% NS 20 UNIT/1,000 ML INFUS.BAG IV SCH (21:30)
[2022-04-08 22:18] LABS: HEPATITIS B SURFACE AG MATERN NON-REACTIVE (NONREACTIVE)
[2022-04-08] MEDS ORDERED: oxyCODONE HCL 5 MG TABLET ONE (22:47)
[2022-04-09] MEDS: IBUPROFEN 600 MG TABLET (FP) PO PRN ×3 (00:55→19:13)
[2022-04-09 09:31] LABS: BASO % 0.2 % (0-2.0); EOS % 0.5 % (0-4.5); HEMATOCRIT 40.7 % (32.4-45.2); HEMOGLOBIN 13.4 GM/dL (10.7-15.3); LYMPH % 17.6 % (8-40); MCH 25.6 pg (25.7-33.7); MCHC 32.8 g/dl (32.0-36.0); MEAN PLT VOLUME 10.2 fl (7.5-11.1); MONO % 6.1 % (3.8-10.2); NEUT % 75.6 % (42.8-82.8); PLATELET COUNT 135 10^3/uL (134-434); RBC 5.22 M/mm3 (3.60-5.2); RDW 15.2 % (11.6-15.6); WHITE BLOOD COUNT 11.3 K/mm3 (4.0-10.0)
[2022-04-09] MEDS ORDERED: DIPHTH,PERTUSS(ACELL),TET 0.5 ML DISP.SYRIN IM ONE (10:00)
[2022-04-09] MEDS: FENTANYL/BUPIVACAINE/NS/PF - PCEA - 50 ML DISP.SYRIN EP SCH (19:45)
[2022-04-09 21:37] VITALS: BP 117/74; PULSE 83; RESP 14; TEMP 98
[2022-04-09] MEDS ORDERED: SENNOSIDES/DOCUSATE COMBO (SENNA PLUS) TABLET (UD) PO PRN (22:00)
[2022-04-10] MEDS: IBUPROFEN 600 MG TABLET (FP) PO PRN (02:28)
== END 2022-04-10 19:00 | disposition home or self-care (01) | DRG 560 ==
LOC: JLDR 13:35 → J3W 04-09
PROVIDERS: ADMIT Specialist; ATTEND Specialist
PROC: 10D07Z6 Extraction of Products of Conception, Vacuum, Via Natural or Artificial Opening (ICD-10-PCS; principal; 2022-04-08)
PROC: 10907ZC Drainage of Amniotic Fluid, Therapeutic from Products of Conception, Via Natural or Artificial Opening (ICD-10-PCS; 2022-04-08)
PROC: 3E033VJ Introduction of Other Hormone into Peripheral Vein, Percutaneous Approach (ICD-10-PCS; 2022-04-08)
DX: O41.03X0 Oligohydramnios, third trimester, not applicable or unspecified (principal); Z3A.39 39 weeks gestation of pregnancy; Z37.0 Single live birth
CPT/HCPCS: 36415; 59409; 80048; 85025; 85610; 85730; 86762; 86780; 86850; 86900; 86901; 87340; 87389; 90715; C9803-CS; U0003; U0005

== ENCOUNTER 2023-06-27 14:34 | Emergency (ER) | payer OTHER ==
[2023-06-27 15:31] VITALS: BP 129/81; PULSE 88; RESP 19; TEMP 98.6; BMI 30.2
[2023-06-27 19:08] LABS: BASO % 0.1 % (0-2.0); EOS % 0.2 % (0-4.5); HEMATOCRIT 39.9 % (32.4-45.2); LYMPH % 24.1 % (8-40); MCHC 32.5 g/dl (32.0-36.0); MEAN CELL VOLUME 73.8 fl (80-96); MEAN PLT VOLUME 9.4 fl (7.5-11.1); MONO % 4.8 % (3.8-10.2); NEUT % 70.8 % (42.8-82.8); PLATELET COUNT 322 10^3/uL (134-434); RBC 5.41 M/mm3 (3.60-5.2); RDW 14.2 % (11.6-15.6); WHITE BLOOD COUNT 10.9 K/mm3 (4.0-10.0)
[2023-06-27 19:12] LABS: EPI CELLS >36 /uL (0-25.1); HYALINE CASTS 1 /uL (0-3.1); PH,URINE 6.5 (5.0-8.0); URINE APPEARANCE CLOUDY; URINE BACTERIA 706 /uL (0-1359); URINE BILIRUBIN NEGATIVE (NEGATIVE); URINE COLOR YELLOW; URINE GLUCOSE (UA) NEGATIVE (NEGATIVE); URINE KETONE 3+ (NEGATIVE); URINE LEUK ESTERASE 1+ (NEGATIVE); URINE NITRITE NEGATIVE (NEGATIVE); URINE PROTEIN TRACE (NEGATIVE); URINE UROBILINOGEN 0.2 mg/dL (0.2-1.0); URINE WBC 38 /uL (0-25.8)
[2023-06-27 19:25] LABS: POTASSIUM 5.6 mmol/L (3.5-5.1)
[2023-06-27 19:27] LABS: CALCIUM 8.9 mg/dL (8.5-10.1)
[2023-06-27 19:28] LABS: ALBUMIN 4.4 g/dl (3.4-5.0); BLOOD UREA NITROGEN 10.2 mg/dL (7-18)
[2023-06-27 19:31] LABS: CREATININE 0.6 mg/dL (0.55-1.3)
[2023-06-27 19:32] LABS: BILIRUBIN,TOTAL 0.9 mg/dL (0.2-1); TOT PROT 8.6 g/dl (6.4-8.2)
[2023-06-27 23:19] LABS: URINE RBC 31.5 /uL (0-23.9)
== END 2023-06-27 22:00 | disposition home or self-care (01) ==
LOC: JER 14:34
DX: M54.50 Low back pain, unspecified (principal); R30.0 Dysuria
CPT/HCPCS: 36415; 74176-TC; 80053; 81003; 84703; 85025; 87086; 99284-25